=== PATIENT | male | born 1985 | race Caucasian/White ===

== ENCOUNTER 2024-06-16 09:26 | Outpatient (CLI) | payer OTHER ==
[2024-06-16 10:14] LABS: HEMATOCRIT 38.6 % (39.0-48.0); HEMOGLOBIN 13.3 g/dL (13-16.00); MEAN CELL VOLUME 87.7 fL (80.0-100.00); MEAN CORPUSCULAR HEMOGLOBIN 30.2 pg (27.00-32.0); MEAN CORPUSCULAR HGB CONC 34.5 g/dl (32.0-36.0); PLATELET COUNT 234 K/uL (150-450); RED BLOOD COUNT 4.41 M/uL (4.00-6.00); RED CELL DISTRIBUTION WIDTH 12.7 % (11.5-14.5)
[2024-06-16 10:14] LABS: URINE APPEARANCE Clear; URINE BILIRRUBIN Negative (NEGATIVE); URINE BLOOD Negative; URINE COLOR Yellow; URINE GLUCOSE Negative (NEGATIVE); URINE KETONE Negative (NEGATIVE); URINE LEUKOCYTE Negative; URINE NITRATE Negative; URINE PROTEIN Negative (NEGATIVE); URINE UROBILINOGEN 0.2 E.U./dl
[2024-06-16 10:18] LABS: URINE BACTERIA 8.8 uL (0.0-1933); URINE WBC 2.3 uL (0.0-23.2)
[2024-06-16 10:49] LABS: URINE EPITHELIAL CELLS 1.3 uL (0.0-38.8); URINE RBC 1.8 uL (0.0-20.8)
[2024-06-16 11:17] LABS: ALBUMIN 3.8 gm/dL (3.4-5.0); BILIRUBIN TOTAL 0.29 mg/dL (0.3-1.2); CALCIUM 8.8 mg/dL (8.5-10.1); CHOL HDL RATIO 3.9 (0-5.0); CREATININE SERUM 0.91 mg/dL (0.70-1.30); GFR 92.75; GLOBULINA 3.4 G/DL (2.4-3.5); POTASSIUM 4.06 mEq/L (3.5-5.1); PROSTATIC SPECIFIC ANTIGEN 0.347 NG/ML (0.010-4.00); T4 FREE 0.85 NG/ML (0.76-1.46); TOTAL PROTEIN 7.2 gm/dL (6.4-8.2); TSH 0.713 uIU/mL (0.358-3.74)
== END 2024-06-16 09:28 | disposition home or self-care (01) ==
LOC: LAB 09:26
PROVIDERS: ATTEND Internal Medicine
DX: E78.2 Mixed hyperlipidemia (principal); E55.9 Vitamin D deficiency, unspecified; R73.03 Prediabetes; E03.8 Other specified hypothyroidism; N40.0 Benign prostatic hyperplasia without lower urinary tract symptoms; I20.9 Angina pectoris, unspecified

== ENCOUNTER 2024-06-18 11:45 | Outpatient (CLI) | payer OTHER | END 2024-06-18 11:47 | disposition home or self-care (01) | LOC: SONOGRAMA 11:45 | PROVIDERS: ATTEND Internal Medicine | DX: L72.9 Follicular cyst of the skin and subcutaneous tissue, unspecified (principal); R22.9 Localized swelling, mass and lump, unspecified ==

== ENCOUNTER 2024-08-20 08:13 | Outpatient (CLI) | payer OTHER | END 2024-08-20 08:19 | disposition home or self-care (01) | LOC: RAD 08:13 | DX: M54.2 Cervicalgia (principal); M54.6 Pain in thoracic spine; M54.50 Low back pain, unspecified ==